=== PATIENT | female | born 1970 | race Caucasian/White ===

== ENCOUNTER 2019-12-26 21:49 | Emergency (ER) | payer OTHER ==
[~2019-12-26] VITALS: Ht 152.4 cm; Wt 77.1 kg
[2019-12-26 21:59] VITALS: Ht 152.4 cm; Wt 77.1 kg
[2019-12-27 02:15] VITALS: BP 116/61
== END 2019-12-27 02:00 | disposition home or self-care (01) ==
LOC: ED 21:49
DX: M54.42 Lumbago with sciatica, left side (principal); G89.29 Other chronic pain; M79.605 Pain in left leg
CPT/HCPCS: J1885; J3010